=== PATIENT | female | born 2000 | race Caucasian/White ===

== ENCOUNTER 2019-04-15 02:18 | Emergency (ER) | payer BC ==
--- NOTE | 2019-04-15 02:46 | ED ---
Respiratory - HPI Summary HPI Summary: 18 y/o F with hx migraines presenting with cough and chest tightness since Tuesday04/10/2019. She is also reporting shortness of breath at rest and exertion. No fever, chest pain. Took Delsym cough which helped with cough but not the chest tightness. No FHx. She does not smoke. She is not on control. [facility] She flew from [place] to [place]. No hx DVT. Home Medications Medication Instructions Recorded Confirmed Type NK [No Home Medications Reported] 04/15/19 04/15/19 History - History of Current Complaint Chief Complaint: EDUpperRespComplaint Stated Complaint: SOB PER PT Time Seen by Provider: 04/15/19 02:32 Hx Obtained From: Patient Onset/Duration: Lasting Days - 5, Still Present Current Severity: Mild Pain Intensity: 3 Aggravating Factor(s): Exertion Alleviating Factor(s): Nothing - Allergy/Home Medications Allergies/Adverse Reactions: Allergies Allergy/AdvReac Type Severity Reaction Status Date / Time No Known Allergies Allergy Verified 04/15/19 02:21 Home Medications: Home Medications NK [No Home Medications Reported] 04/15/19 [History Confirmed 04/15/19] PMH/Surg Hx/FS Hx/Imm Hx Endocrine/Hematology History: Denies: Hx Diabetes Neurological History: Reports: Hx Migraine - Surgical History Surgical History: None Infectious Disease History: No Infectious Disease History: Reports: Traveled Outside the [place] in Last 30 Days - Family History Known Family History: Negative: Cardiac Disease, Hypertension, Diabetes - Social History Alcohol Use: Rare Hx Substance Use: No Substance Use Type: Reports: None Hx Tobacco Use: No Smoking Status (MU): Never Smoked Tobacco Review of Systems Negative: Fever Negative: Chest Pain Positive: Shortness Of Breath, Cough, Other - chest tightness All Other Systems Reviewed And Are Negative: Yes Physical Exam - Summary Physical Exam Summary: Constitutional: Well-developed, Well-nourished, Alert. (-) Distressed Skin: Warm, Dry HENT: Normocephalic; Atraumatic Eyes: Conjunctiva normal Neck: Musculoskeletal ROM normal neck. (-) JVD, (-) Stridor, (-) Nuchal rigidity Cardio: Rhythm regular, tachycardia, Heart sounds normal; Intact distal pulses; Radial pulses are 2+ and symmetric. (-) Murmur Pulmonary/Chest wall: Effort normal. (-) Respiratory distress, (-) Wheezes, (-) Rales Abd: Soft, (-) tenderness, (-) Distension, (-) Guarding, (-) Rebound Musculoskeletal: (-) Edema Neuro: Alert, Oriented x3 Psych: Mood and affect Normal Triage Information Reviewed: Yes Vital Signs On Initial Exam: Initial Vitals Temp Pulse Resp BP Pulse Ox 97.6 F 108 16 141/85 100 04/15/19 02:19 04/15/19 02:19 04/15/19 02:19 04/15/19 02:19 04/15/19 02:19 Vital Signs Reviewed: Yes Procedures - Sedation Patient Received Moderate/Deep Sedation with Procedure: No Diagnostics - Vital Signs Vital Signs Temp Pulse Resp BP Pulse Ox 04/15/19 02:19 97.6 F 108 16 141/85 100 - Laboratory Result Diagrams: 04/15/19 02:55 04/15/19 02:54 Lab Statement: Any lab studies that have been ordered have been reviewed, and results considered in the medical decision making process. - Radiology CXR Radiology Interpretation Completed By: ED Physician - No acute process. Pending official report. Re-Evaluation - Re-Evaluation First Eval Re-Evaluation Time: 03:45 Change: Improved - resting NAD. Easy WOB on RA. Explained labs and CXR. Given albuterol to help w bronchospasm Disposition - Course Course Of Treatment: 18-year-old female presenting with shortness of breath and cough. Well appearing, mild tachycardia to low 100's, afebrile. Shortness of breath ddx: Most likely viral URI, given tessalon pearls and albuterol. Also consider: COPD exacerbation/asthma - no h/o COPD, no wheezing on exam. Low suspicion. PNA - no sputum production, no fevers or chills. No leukocytosis. CXR w/o infiltrate. Low suspicion. PTX - breath sounds equal, no risk factors for PTX, CXR w/o e/o PTX. CHF - no h/o CHF, no [place] or orthopnea, no BLE edema, CXR w/o pulmonary edema. PE - Wells low risk, D dimer <200 - Diagnoses Provider Diagnoses: Shortness of breath, Upper respiratory infection Discharge ED - Sign-Out/Discharge Documenting (check all that apply): Patient Departure - Discharge Plan Condition: Stable Disposition: HOME Patient Education Materials: Upper Respiratory Infection (ED) Referrals: [facility] [Outside] Additional Instructions: You were seen in the emergency department for cough and short of breath. You can take an albuterol inhaler as needed every 4 hours if this helps with your shortness of breath. If any studies were not completed at the time of discharge you will be called with the relevant results. Please follow up with your primary care doctor in next 2-3 days and return to emergency department for worsening shortness of breath, chest pain, fevers, or concerning symptoms. It was a pleasure taking care of you today. - Billing Disposition and Condition Condition: STABLE Disposition: Home - Attestation Statements Document Initiated by Danna: Yes Documenting Scribe: Adela Brannon Provider For Whom Danna is Documenting (Include Credential): Danae Aviles MD Scribe Attestation: IAdela, scribed for Danae Aviles MD on 04/15/19 at 0358. Scribe Documentation Reviewed: Yes Provider Attestation: The documentation as recorded by the Adela escobar accurately reflects the service I personally performed and the decisions made by me, Danae Aviles MD Status of Scribe Document: Viewed
[2019-04-15] MEDS ORDERED: Benzonatate CAP* 100 MG PO ONE (02:48)
[2019-04-15 03:04] LABS: ABS Basophils 0.1 10^3/ul (0-0.2); ABS Eosinophils 0.1 10^3/ul (0-0.6); ABS Lymphocytes 2.1 10^3/ul (1.0-4.8); Eosinophil % 1.6 %; Hematocrit 41 % (35-47); Hemoglobin 14.4 g/dL (12.0-16.0); Lymphocyte % 29.1 %; Mean Corpuscular HGB Conc 35 g/dL (31-36); Mean Corpuscular Hemoglobin 29 pg (27-31); Mean Corpuscular Volume 84 fL (80-97); Mean Platelet Volume 8.7 fL (7.4-10.4); Platelet Count 208 10^3/uL (150-450); Red Blood Count 4.91 10^6 /uL (3.70-4.87); Red Cell Distribution Width 13 % (10-15); White Blood Count 7.2 10^3/uL (3.5-10.8)
[2019-04-15] MEDS ORDERED: Albuterol HFA INHALER* 8 gm MDI INH ONE (03:15)
[2019-04-15 03:22] LABS: Albumin 4.6 g/dL (3.2-5.2); Albumin/Globulin Ratio 1.6 (1-3); BUN/Creatinine Ratio 25.4 (8-20); Calcium 9.6 mg/dL (8.6-10.3); EGFR African American 145.8 (>60); EGFR Non-African American 120.5 (>60); Globulin 2.9 g/dL (2-4); Potassium 4.2 mmol/L (3.5-5.0); Total Bilirubin 0.4 mg/dL (0.2-1.0); Total Protein 7.5 g/dL (6.4-8.9)
[2019-04-15 04:22] VITALS: BP 129/80
== END 2019-04-15 04:22 | disposition home or self-care (01) ==
LOC: ED 02:18
DX: J06.9 Acute upper respiratory infection, unspecified (principal)
CPT/HCPCS: 36415; 71046; 80053; 85025; 85379; 99283; A9270-GY